=== PATIENT | female | born 1965 | race African-American/Black ===

== ENCOUNTER → 2017-12-06 | Outpatient (REF) | payer OTHER | LOC: M LAB REF 10:31 | DX: J11.1 Influenza due to unidentified influenza virus with other respiratory manifestations (principal) ==

== ENCOUNTER 2018-08-11 19:55 | Emergency (ER) | payer OTHER ==
[2018-08-11] MEDS: ACETAMINOPHEN TAB 650MG DOSE (2X325MG) PO (20:54)
[2018-08-11 21:33] LABS: INFLUENZA A AMPLIFICATION NEGATIVE (NEGATIVE); INFLUENZA B AMPLIFICATION NEGATIVE (NEGATIVE)
[2018-08-11 21:41] LABS: BASO % 0.2 % (0.0-1.0); EOS % 0.2 % (0.0-3.0); HEMATOCRIT 34.9 % (36.0-47.0); HEMOGLOBIN 11.4 g/dl (12.0-15.5); IMMATURE GRANULOCYTE % 0.3 % (0-3.0); LYMPH # 1.7 10^3/uL (1.5-4.5); LYMPH % 14.3 % (24.0-44.0); MEAN CORPUSCULAR HEMOGLOBIN 29.5 pg (27.0-33.0); MEAN CORPUSCULAR HGB CONC 32.7 g/dl (32.0-36.5); MEAN CORPUSCULAR VOLUME 90.4 fl (80.0-96.0); MONO # 0.6 10^3/uL (0.0-0.8); MONO % 5.3 % (0.0-5.0); NEUTROPHILS # 9.6 10^3/uL (1.8-7.7); NEUTROPHILS % 79.7 % (36.0-66.0); PLATELET COUNT, AUTOMATED 268 10^3/uL (150-450); RED BLOOD COUNT 3.86 10^6/uL (4.00-5.40); RED CELL DISTRIBUTION WIDTH 12.2 % (11.5-14.5); WHITE BLOOD COUNT 12.1 10^3/uL (4.0-10.0)
[2018-08-11 22:00] LABS: ERYTHROCYTE SEDIMENTATION RATE 37 mm/hr (0-30)
[2018-08-11 22:03] LABS: ALBUMIN 3.4 GM/DL (3.2-5.2); ALBUMIN/GLOBULIN RATIO 1.03 (1.00-1.93); ALKALINE PHOSPHATASE 65 U/L (45-117); ALT/SGPT 14 U/L (12-78); ANION GAP 5 MEQ/L (8-16); AST/SGOT 8 U/L (7-37); BILIRUBIN,DIRECT 0.1 MG/DL (0.0-0.2); BILIRUBIN,TOTAL 0.3 MG/DL (0.2-1.0); BLOOD UREA NITROGEN 8 MG/DL (7-18); CALCIUM LEVEL 8.3 MG/DL (8.5-10.1); CARBON DIOXIDE LEVEL 29 MEQ/L (21-32); CHLORIDE LEVEL 107 MEQ/L (98-107); CREATININE FOR GFR 0.76 MG/DL (0.55-1.30); GLOMERULAR FILTRATION RATE > 60.0 (>51); GLUCOSE, FASTING 110 MG/DL (70-100); POTASSIUM SERUM 3.7 MEQ/L (3.5-5.1); SODIUM LEVEL 141 MEQ/L (136-145); TOTAL PROTEIN 6.7 GM/DL (6.4-8.2)
[2018-08-11 22:03] LABS: LACTIC ACID SEPSIS PROTOCOL 1.1 MMOL/L (0.4-2.0)
[2018-08-11] MEDS ORDERED: ISOVUE-370 76% 100ML VIAL (Q9967) As Ordered (22:06)
[2018-08-11 22:19] LABS: KETONE, URINE AUTO RFX NEGATIVE (NEGATIVE); MUCUS, URINE RFX SMALL (NEGATIVE); NITRITE, URINE AUTO RFX NEGATIVE (NEGATIVE); RBC, URINE AUTO RFX 4 /HPF (0-3); SPECIFIC GRAVITY UR AUTO RFX 1.014 (1.002-1.035); SQUAM EPITHELIAL CELL UR AURFX 0 /HPF (0-6); WBC, URINE AUTO RFX 1 /HPF (0-3)
[2018-08-11 22:20] LABS: LEUKOCYTE ESTERASE UR AUTO RFX 1+ (NEGATIVE)
[2018-08-12] MEDS ORDERED: MORPHINE 4 MG/ML 1ML VIAL/SYRINGE (J2270) IV
[2018-08-12] MEDS: PERCOCET 5MG/325MG TAB PO (00:14)
[2018-08-12] MEDS: NORCO 5/325MG TABLET (BULK FOR ED) PO (01:30)
[2018-08-12] MEDS ORDERED: MIDAZOLAM INJ 2 MG/2 ML VIAL (J2250) As Ordered (14:30)
[2018-08-12] MEDS ORDERED: fentaNYL 100 MCG/2 ML INJECTION (J3010) As Ordered (14:31)
[2018-08-12] MEDS ORDERED: CHLOROPROCAINE 2 % INJ PRES.FREE 20 ML VIAL (J2400) As Ordered (14:32)
[2018-08-12] MEDS ORDERED: PROPOFOL 200 MG/20 ML VIAL As Ordered ×2 (14:56→15:45)
[2018-08-12] MEDS ORDERED: ePHEDrine SULFATE 25 MG/5 ML(5MG/ML) SYRINGE As Ordered (15:18)
[2018-08-12] MEDS ORDERED: PHENYLephrine HCL 500 MCG/5 ML (100MCG/ML) SYRINGE (J2370) As Ordered (15:18)
== END 2018-08-12 01:52 | disposition home or self-care (01) ==
LOC: M ED 08-12 01:52
DX: A08.4 Viral intestinal infection, unspecified (principal); D25.9 Leiomyoma of uterus, unspecified; M25.512 Pain in left shoulder; Z88.5 Allergy status to narcotic agent
CPT/HCPCS: Q9967

== ENCOUNTER 2018-08-12 10:47 | Day surgery (SDC) | payer OTHER ==
[2018-08-12 11:31] LABS: BASO % 0.3 % (0.0-1.0); EOS % 0.1 % (0.0-3.0); HEMATOCRIT 35.4 % (36.0-47.0); HEMOGLOBIN 11.6 g/dl (12.0-15.5); IMMATURE GRANULOCYTE % 0.5 % (0-3.0); LYMPH # 1.7 10^3/uL (1.5-4.5); LYMPH % 15.6 % (24.0-44.0); MEAN CORPUSCULAR HEMOGLOBIN 29.9 pg (27.0-33.0); MEAN CORPUSCULAR HGB CONC 32.8 g/dl (32.0-36.5); MEAN CORPUSCULAR VOLUME 91.2 fl (80.0-96.0); MONO # 0.6 10^3/uL (0.0-0.8); MONO % 5.5 % (0.0-5.0); NEUTROPHILS # 8.6 10^3/uL (1.8-7.7); PLATELET COUNT, AUTOMATED 261 10^3/uL (150-450); RED BLOOD COUNT 3.88 10^6/uL (4.00-5.40); RED CELL DISTRIBUTION WIDTH 12.3 % (11.5-14.5)
[2018-08-12] MEDS: MORPHINE 4 MG/ML 1ML VIAL/SYRINGE (J2270) IV ×6 (11:38→11:58)
[2018-08-12] MEDS: NS 1,000 ML IV ×2 (11:38)
[2018-08-12] MEDS: ONDANSETRON 4MG/2ML VIAL (J2405) IV ×2 (11:38)
[2018-08-12] MEDS: diphenhydrAMINE INJ 50MG/ML VIAL (J1200) IV ×4 (11:51→11:58)
[2018-08-12 11:54] LABS: ANION GAP 6 MEQ/L (8-16); BLOOD UREA NITROGEN 6 MG/DL (7-18); CALCIUM LEVEL 8.3 MG/DL (8.5-10.1); CARBON DIOXIDE LEVEL 30 MEQ/L (21-32); CHLORIDE LEVEL 104 MEQ/L (98-107); CREATININE FOR GFR 0.76 MG/DL (0.55-1.30); ERYTHROCYTE SEDIMENTATION RATE 50 mm/hr (0-30); GLOMERULAR FILTRATION RATE > 60.0 (>51); GLUCOSE, FASTING 93 MG/DL (70-100); POTASSIUM SERUM 4.3 MEQ/L (3.5-5.1); SODIUM LEVEL 140 MEQ/L (136-145)
[2018-08-12] MEDS ORDERED: MORPHINE 4 MG/ML 1ML VIAL/SYRINGE (J2270) IV ×2 (13:30)
[2018-08-12] MEDS: BUPIVACAINE HCL 0.25% 30 ML VIAL As Ordered ×2 (14:06)
[2018-08-12] MEDS: BUPIVACAINE HCL 0.5% 30 ML VIAL As Ordered ×2 (14:07)
[2018-08-12] MEDS: CIPROFLOXACIN/D5W 400 MG/200 ML BAG (J0744) As Ordered ×2 (14:27)
[2018-08-12] MEDS: metroNIDAZOLE/NACL 500MG(5MG/ML)100 ML BAG (S0030) As Ordered ×2 (14:27)
[2018-08-12] MEDS ORDERED: ePHEDrine SULFATE 25 MG/5 ML(5MG/ML) SYRINGE (14:30)
[2018-08-12] MEDS ORDERED: fentaNYL 100 MCG/2 ML INJECTION (J3010) (14:30)
[2018-08-12] MEDS ORDERED: PHENYLephrine HCL 500 MCG/5 ML (100MCG/ML) SYRINGE (J2370) (14:30)
[2018-08-12] MEDS ORDERED: CHLOROPROCAINE 2 % INJ PRES.FREE 20 ML VIAL (J2400) (14:30)
[2018-08-12] MEDS ORDERED: MIDAZOLAM INJ 2 MG/2 ML VIAL (J2250) (14:30)
[2018-08-12] MEDS ORDERED: PROPOFOL 200 MG/20 ML VIAL (14:30)
[2018-08-12] MEDS: CIPROFLOXACIN 400 MG in APPROPRIATE DILUENT 1 EA IV (14:48)
[2018-08-12] MEDS: metroNIDAZOLE 500 MG in APPROPRIATE DILUENT 1 EA IV (15:41)
[2018-08-12] MEDS: BUPIVACAINE LIPOSOME/PF 1.3% 20 ML VIAL (13.3MG/ML)(EXPAREL) As Ordered ×2 (15:55)
[2018-08-12] MEDS: fentaNYL 100 MCG/2 ML INJECTION (J3010) IV ×10 (16:15→16:30)
[2018-08-12] MEDS ORDERED: fentaNYL 100 MCG/2 ML INJECTION (J3010) As Ordered ×2 (16:15)
[2018-08-12] MEDS ORDERED: PERCOCET 5MG/325MG TAB As Ordered ×2 (16:24)
[2018-08-12] MEDS ORDERED: ONDANSETRON 4MG/2ML VIAL (J2405) IV ×2 (16:30)
[2018-08-12] MEDS ORDERED: LR 1,000 ML IV ×2 (16:30)
[2018-08-12] MEDS ORDERED: MORPHINE 10 MG/ML 1ML VIAL (J2270) IV ×2 (16:30)
[2018-08-12] MEDS: PERCOCET 5MG/325MG TAB PO ×4 (16:36→23:18)
[2018-08-12] MEDS ORDERED: NORCO, ANEXSIA 5/325MG TABLET (HYDROcodone/ACETAMINOPHEN) PO ×2 (17:00)
[2018-08-12] MEDS: LR 1,000 ML IV ×4 (17:15→20:53)
[2018-08-12] MEDS: metroNIDAZOLE (FLAGYL) 500 MG TAB PO ×2 (20:47)
[2018-08-12] MEDS: BACTRIM 160MG/800MG DS TAB PO ×2 (20:47)
[2018-08-12] MEDS: DOCUSATE SODIUM 100 MG CAP PO ×2 (20:48)
[2018-08-12] MEDS: KETOROLAC 30 MG/ML VIAL (J1885) IV ×2 (20:49)
[2018-08-13] MEDS: metroNIDAZOLE (FLAGYL) 500 MG TAB PO ×4 (05:26→15:44)
[2018-08-13] MEDS: PERCOCET 5MG/325MG TAB PO ×4 (05:26→10:46)
[2018-08-13] MEDS: ACETAMINOPHEN TAB 650MG DOSE (2X325MG) PO ×2 (05:26)
[2018-08-13] MEDS: LR 1,000 ML IV ×2 (05:30)
[2018-08-13] MEDS: BACTRIM 160MG/800MG DS TAB PO ×2 (08:31)
[2018-08-13] MEDS: DOCUSATE SODIUM 100 MG CAP PO ×2 (08:31)
== END 2018-08-13 16:05 | disposition home or self-care (01) ==
LOC: M SDC 08-13 16:05 → M ED 10:47 → M SDC 13:21 → M PED 17:10
DX: K61.39 Other ischiorectal abscess (principal); M25.512 Pain in left shoulder
CPT/HCPCS: 45005

== ENCOUNTER → 2021-03-27 | Outpatient (CLI) | payer OTHER ==
[~2021-03-27] MED LIST: BACTDSTA PO; COLA100C5 PO; FLAG500T PO; FLUC150T PO; HYDR-3715 PO; IBUP80TA PO; NORC1TAB7 PO; PROG1CAP8; TIZA4CAP PO; TIZA4TAB4; ZOLP10TA2 PO
== END ==
LOC: M LABSMTC 11:27
PROVIDERS: ATTEND Anesthesiology
DX: Z20.828 Contact with and (suspected) exposure to other viral communicable diseases (principal); Z11.59 Encounter for screening for other viral diseases

== ENCOUNTER 2021-04-01 06:18 | Day surgery (SDC) | payer OTHER ==
[2021-04-01] VITALS (9 sets, daily range): BP systolic 101–127; BP diastolic 61–76; O2SAT 96
[~2021-04-01] VITALS: Ht 165.1 cm; Wt 89.8 kg
[~2021-04-01 06:18] MED LIST changes: +LIDOCAINE 1% MDV 20ML VIAL SQ PRN; +LR 1,000 ML IV ONE; +ceFAZolin SOD 2 GM in IV 1 EA IV ONE
[2021-04-01 06:54] LABS: HEMATOCRIT 35.2 % (36.0-47.0); HEMOGLOBIN 11.4 g/dl (12.0-15.5); MEAN CORPUSCULAR HEMOGLOBIN 29.8 pg (27.0-33.0); MEAN CORPUSCULAR HGB CONC 32.4 g/dl (32.0-36.5); MEAN CORPUSCULAR VOLUME 92.1 fl (80.0-96.0); PLATELET COUNT, AUTOMATED 289 10^3/uL (150-450); RED BLOOD COUNT 3.82 10^6/uL (4.00-5.40); WHITE BLOOD COUNT 5.3 10^3/uL (4.0-10.0)
[2021-04-01] MEDS ORDERED: propofoL 200 MG/20 ML VIAL As Ordered ONE (07:15)
[2021-04-01] MEDS ORDERED: LIDOCAINE W/EPINEPHRINE 1% 20ML VIAL As Ordered ONE (07:15)
[2021-04-01] MEDS ORDERED: LIDOCAINE 2% 100MG/5ML SDV (FOR ANES.) As Ordered ONE (07:15)
[2021-04-01] MEDS ORDERED: ROCURONIUM BROMIDE 50 MG/5 ML VIAL As Ordered ONE (07:15)
[2021-04-01] MEDS ORDERED: MIDAZOLAM INJ 2MG/2ML VIAL (J2250 PER 1MG) As Ordered ONE ×2 (07:16→07:35)
[2021-04-01] MEDS ORDERED: fentaNYL 250 MCG/5 ML INJECTION (J3010) As Ordered ONE (07:16)
[2021-04-01] MEDS ORDERED: LACRILUBE (AKWA TEARS) OPHTH OINT 3.5 GM As Ordered ONE (07:45)
[2021-04-01] MEDS ORDERED: BUPIVACAINE/EPIN 0.25% 30 ML VIAL As Ordered ONE (07:49)
[2021-04-01] MEDS ORDERED: ONDANSETRON 4MG/2ML VIAL As Ordered ONE ×2 (08:33→09:29)
[2021-04-01] MEDS ORDERED: KETOROLAC 60MG 2ML VIAL As Ordered ONE (08:33)
[2021-04-01] MEDS ORDERED: METOCLOPRAMIDE INJ 10MG/2ML VIAL (J2765 PER 1) As Ordered ONE (08:33)
[2021-04-01] MEDS ORDERED: dexameTHASONE 4 MG/ML 1ML VIAL (J1100 PER 1MG) As Ordered ONE (08:34)
[2021-04-01] MEDS ORDERED: ACETAMINOPHEN 1000MG 100ML IV BTL (OFIRMEV) (J0131 PER 10MG) As Ordered ONE (08:35)
[2021-04-01] MEDS ORDERED: SUGAMMADEX SODIUM 500 MG/5 ML VIAL (BRIDION) As Ordered ONE (08:35)
[2021-04-01] MEDS ORDERED: FLUORESCEIN 10% (100MG/ML) 5 ML VIAL As Ordered ONE (08:37)
[2021-04-01] MEDS ORDERED: HYDROmorphone HCL 2 MG/ML 1ML VIAL (J1170) As Ordered ONE (08:47)
[2021-04-01] MEDS ORDERED: OXYC1TAB23 PO (09:13)
[2021-04-01] MEDS ORDERED: fentaNYL 100 MCG/2 ML INJECTION (J3010) As Ordered ONE (09:29)
[2021-04-01] MEDS ORDERED: ONDANSETRON 4MG/2ML VIAL IV PRN (09:35)
[2021-04-01] MEDS ORDERED: LR 1,000 ML IV SCH ×2 (09:35→09:50)
[2021-04-01] MEDS ORDERED: HYDROMORPHONE HCL 0.5 MG/ 0.5 ML SYRINGE (J1170 PER 1) IV PRN (09:35)
[2021-04-01] MEDS: fentaNYL 100 MCG/2 ML INJECTION (J3010) IV PRN ×4 (09:37→10:20)
[2021-04-01] MEDS: oxyCODONE 5MG TAB PO PRN ×2 (09:50→10:20)
[2021-04-01] MEDS: IBUPROFEN 800 MG TAB PO SCH ×3 (11:27→21:23)
[2021-04-01] MEDS: SIMETHICONE 80MG CHEW TAB PO SCH ×3 (11:28→21:23)
--- NOTE | 2021-04-01 12:33 | RO ---
OPERATIVE NOTE DATE OF OPERATION: 04/01/2021 INDICATIONS FOR PROCEDURE: Karishma is a 55-year-old female with postmenopausal bleeding. She was also found to have an enlarged fibroid uterus. After extensive counseling, the decision was made to proceed with a total robotic-assisted laparoscopic hysterectomy with removal of both tubes and ovaries and possible cystoscopy. PREOPERATIVE DIAGNOSES: 1. Postmenopausal bleeding. 2. Enlarged fibroid uterus. POSTOPERATIVE DIAGNOSES: 1. Postmenopausal bleeding. 2. Enlarged fibroid uterus. PROCEDURES: 1. Robotic-assisted total hysterectomy. 2. Bilateral salpingo-oophorectomy. 3. Cystoscopy. SURGEON: Jose L Drummond D.O. DEBONER: NAYE Greenfield. ANESTHESIA: General. COMPLICATIONS: None. ESTIMATED BLOOD LOSS: Less than 20 mL. SPECIMENS SENT TO LAB: The uterus, tubes, and ovaries. FINDINGS: Enlarged uterus. Normal ovaries. On cystoscopy bilateral ureteral jets were noted. No evidence of any bladder injury noted. DESCRIPTION OF PROCEDURE: After obtaining informed consent, the patient was taken to the operating. When general anesthetic was found to be adequate, she was then prepped and draped in the usual sterile fashion in the dorsolithotomy position. At this point, a Block catheter was placed in the bladder for drainage. We then placed a HUMI II uterine manipulator. Attention was then turned to the abdomen, where using a Veress needle the abdomen was insufflated with CO2 gas to approximately 3.5 liters. We then placed an 8 mm supraumbilical incision followed by two 8 mm left lateral ports, as well as one 8 mm right lateral port. The patient was placed in Trendelenburg. The robot was brought to the patient's right side. The camera port was docked. After docking the camera port, the targeting was performed. After passing the targeting system, the robotic arm one and arm two were then docked. An EndoShear was placed on robotic arm one, as well as a bipolar grasper on robotic arm two. I then unscrubbed and went to the surgeon console to begin the surgery. At this point, the infundibulopelvic ligament was identified. Using the vessel sealer, this was cauterized and cut all the way down to the uterine arteries. The uterine arteries were also cauterized and cut. At this point, careful dissection was done to make sure the bladder was out of the operative field, as well as the ureters were kept safe. The anterior leaflet of the broad ligament was then dissected to create a bladder flap. The bladder was pushed out of the operative field. The opposite side was done in a similar fashion. After securing both uterine arteries and pushing the bladder out of the operative field, the Vessel Sealer was removed, and EndoShear was inserted. Anterior and posterior colpotomy was performed. The uterus, as well as both fallopian tubes and ovaries, were removed through the vagina. One mL of fluorescein was given by the anesthesiologist to assist with the cystoscopy. We then introduced a 2-0 V-Loc suture through the assist port and the vaginal cuff was then closed in a running fashion using 2-0 V-Loc suture. The peritoneum over the vaginal cuff was also closed in a similar fashion. Pelvis copiously irrigated with normal saline and suctioned out. Good hemostasis noted. I then rescrubbed and went to the patient's side and performed a cystoscopy. The bladder was retrograde filled with 230 mL of normal saline. The Block was removed. The cystoscope was inserted. Bilateral ureteral jets noted with dye coming out of the ureters. No evidence of any bladder injury noted. At this point, the Block catheter was reinserted and the bladder was then drained. The robot was undocked completely and the robotic ports were then closed using 3-0 Vicryl in a subcuticular fashion. Then 0.25% Marcaine was placed for postoperative pain. Dermabond placed. The patient tolerated the procedure well. She was then transferred to the recovery room in stable condition.
[2021-04-01] MEDS: PERCOCET 5MG/325MG TAB PO PRN ×2 (12:56→18:28)
[2021-04-02] MEDS: PERCOCET 5MG/325MG TAB PO PRN ×2 (02:03→07:54)
[2021-04-02] MEDS: IBUPROFEN 800 MG TAB PO SCH (04:42)
[2021-04-02] MEDS: SIMETHICONE 80MG CHEW TAB PO SCH (04:42)
--- NOTE | 2021-04-02 05:50 | ECGEPIP ---
[facility] Test Date: 2021-04-01 Pat Name: MARIE ROGEL Department: Room: - Gender: Female Chief Operator: TRU : 1965 Requested By: Casper Zamudio Order Number: [id number] Reading MD: Veronica Rivers Measurements Intervals [place] Rate: 64 P: 5 ND: 160 QRS: 11 QRSD: 92 T: 19 QT: 416 QTc: 429 Interpretive Statements Normal sinus rhythm No prior Electronically Signed on 04-02-2021 5:50:12 EDT by Veronica Rivers
[2021-04-02 06:00] VITALS: BP 116/68
[2021-04-02] MEDS ORDERED: IBUP80TA PO (07:49)
== END 2021-04-02 08:49 | disposition home or self-care (01) ==
LOC: M SDC 06:18 → M MS5PR 10:45 → M SDC 04-02 08:49
PROVIDERS: ATTEND Obstetrics & Gynecology
DX: N95.0 Postmenopausal bleeding (principal); D25.9 Leiomyoma of uterus, unspecified; N72 Inflammatory disease of cervix uteri; N85.8 Other specified noninflammatory disorders of uterus; M12.9 Arthropathy, unspecified; N83.291 Other ovarian cyst, right side; N83.292 Other ovarian cyst, left side; J45.909 Unspecified asthma, uncomplicated; R06.83 Snoring; G47.33 Obstructive sleep apnea (adult) (pediatric); Z79.899 Other long term (current) drug therapy
CPT/HCPCS: 36415; 58571; 85027; 86850; 86900; 86901; 88307; 93005; J0131; J0690; J1100; J1170; J1885; J2250; J2405; J2765; J3010